=== PATIENT | female | born 1970 | race Caucasian/White ===

== ENCOUNTER 2016-10-19 16:54 | Emergency (ER) | payer OTHER ==
[~2016-10-19] VITALS: Ht 152.4 cm; Wt 70.5 kg
[~2016-10-19 16:54] MED LIST: ATEN25TA7 PO; ATEN50TA PO; BUPR150T9 PO; CITA40TA13 PO; OXYC-466 PO; PANT20T PO; PANT40SU PO; TIAG4TAB32 PO
[2016-10-19 17:09] VITALS: BP 151/87; PULSE 57; RESP 22; O2SAT 99
--- NOTE | 2016-10-19 17:59 | ED.REPORT ---
HPI-General Illness Date of Service October 19, 2016 ED Provider: Facundo Berg MD Patient is a 46 year old female with a hx of HTN and migraines who presents to the ED complaining of weakness and numbness to all extremities. She reports that her symptoms started as nausea and malaise 3 days ago and progressed. Associated symptoms include vomiting, blurred vision, dizziness, generalized pain, diarrhea, left sided facial droop (onset 1130 today), and headache onset 3 days ago. She denies cough, dysuria, fever, head trauma, or any other symptoms She has had similar symptoms previously and has been worked up for her episodes of extremity weakness and facial droop by Dr. Corbin. Patient reports that since being on BP meds, her episodes have been less frequent. She takes Protonics, Celexa, and Atenolol daily. Nursing Notes Stated Complaint: NAUSEA, HEADACHE Chief Complaint: Neuro Symptoms/ Deficits Nursing Notes Reviewed: Yes Allergies: Coded Allergies: acetaminophen (Verified Allergy, Mild, MAKES FEET ITCH, 10/19/16) hydrocodone (Verified Allergy, Mild, MAKES FEET ITCH, 10/19/16) Scheduled Atenolol (Atenolol) 50 Mg Tablet 50 MG PO BID Atenolol-Expunged Drug, Do Not Renew! (Atenolol-Expunged Drug, Do Not Renew!) 25 Mg Tablet 50 MG PO BID Bupropion HCl (Zyban) 150 Mg Tablet.er 150 MG PO BID Citalopram (Citalopram) 40 Mg Tablet 40 MG PO DAILY Pantoprazole Sodium (Protonix Granules) 40 Mg Fernando. 40 MG PO BID Pantoprazole-Expunged Drug, Do Not Renew! (Protonix-Expunged Drug, Do Not Renew! ) 20 Mg Tablet.dr 40 MG PO BID Tiagabine (Tiagabine) 4 Mg Tablet 4 MG PO BID Scheduled PRN oxyCODONE-Acetaminophen 10-325 mg (oxyCODONE-Acetaminophen 10-325 mg) 1 Each Tablet 1 TABLET PO TID PRN PRN For Pain General Time Seen by MD: 17:58 Chief Complaint Weakness Hx Obtained From: Patient, Other family... Arrived By: Walk-in Sudden in Onset?: Yes Onset Occurred: 3 days ago Symptom Duration: Since onset Similar Sx Previous: Yes Past Medical History Past Medical History Notes: PCP: Brenda Raymond h/o multiple ED visits for epigastric pain in 2012, and prior Neurologist [facility] work-up negative Past Medical History Depression Anxiety H/o Pancreatitis, idiopathic (Admit 12/2008) (Lipase 790, CT negative, U/S negative hepatobilliary pathology, Negative HIDA Scan 10/2009 Hypertension Chronic chest pain Pineal gland cyst Past Surgical History Upper endoscopy 10/02/09 Gastric polyps, 2cm hiatal hernia Sinus surgery Family History noncontributory Smoking History Former Smoker Social History Alcohol Use: Denies alcohol use Drug Use: Denies drug use Other Social History: Good social support, Local resident Ambulatory Status Independent Review of Systems +left sided facial droop -head trauma Full Review of Systems Constitutional: Reports: Malaise, Denies: Fever Eyes: Reports: Blurred bilateral Respiratory: Denies: Non-productive cough GI: Reports: Diarrhea, Nausea, Vomiting Female: Denies: Dysuria Neurologic: Reports: Dizziness, Headache, Numbness, Weakness Complete sys rev & neg: except as marked. Physical Exam Vital Signs Vital Signs Date Time Temp Pulse Resp B/P Pulse Ox O2 Delivery O2 Flow Rate FiO2 10/19/16 19:12 36.8 62 17 143/87 100 Room Air 10/19/16 17:09 57 22 151/87 99 Room Air Initial VS: Reviewed Head / Eyes: Atraumatic, Normocephalic Neck: Full range of motion Skin: Warm, Dry Psychiatric: Mood/affect normal, Behavior normal, Normal thought content General/Constitutional: Awake, Alert, Well developed Distress / Hydration: Positive: Distress moderate Respiratory / Chest: Breath sounds NL, Breath sounds = bilat mildly tachypneic Cardiovascular: Heart rate NL, Regular rhythm, Heart sounds NL Abdomen: Soft Neurologic: Oriented X3, Speech NL Mild left facial droop. Neuro exam otherwise nL Carpal pedal spasm Interpretation & Diagnostics Lab Results Interpretation Result Diagram: 10/19/16180610/19/161806 Test 10/19/16 18:07 White Blood Count 10.9th/mm3 (3.8-10.1) Red Blood Count 5.25mil/mm3 (3.90-5.20) Hemoglobin 14.0g/dL (12.0-15.6) Hematocrit 41.9% (35.0-46.0) Mean Corpuscular Volume 79.8fL (81-100) Mean Corpuscular Hemoglobin 26.7pg (27.0-35.0) Mean Corpuscular Hemoglobin Concent 33.4% (32.0-37.0) Red Cell Distribution Width 17.0% (12.3-15.4) Platelet Count 378bil/L (150-400) Neutrophils (%) (Auto) 72.7% (40-74) Lymphocytes (%) (Auto) 19.8% (14-46) Monocytes (%) (Auto) 7.0% (4-12) Eosinophils (%) (Auto) 0.1% (0-5) Basophils (%) (Auto) 0.3% (0-3) Erythrocyte Sedimentation Rate 18mm/hr (0-32) Sodium Level 138mEq/L (134-144) Potassium Level 3.7mEq/L (3.5-5.2) Chloride Level 96mEq/L (97-108) Carbon Dioxide Level 17mmol/L (18-29) Blood Urea Nitrogen 13mg/dL (6-24) Creatinine 0.60mg/dL (0.57-1.00) Estimat Glomerular Filtration Rate 154mL/min (>59) Glucose Level 85mg/dL (60-99) Calcium Level 10.6mg/dL (8.5-10.1) Total Bilirubin 0.8mg/dL (0.0-1.2) Aspartate Amino Transf (AST/SGOT) 32U/L (0-50) Alanine Aminotransferase (ALT/SGPT) 27U/L (0-32) Alkaline Phosphatase 167U/L (25-150) Total Protein 8.9g/dL (6.4-8.4) Albumin 5.0g/dL (3.4-5.0) Re-Eval/Medical Decision Med Decision/Clinical Course I believe that her symptoms were related to migraine and subsequent development of hyperventilation and carpopedal spasm and circumoral numbness. Time of Eval: 19:45 Re-Evaluation/Progress Note: Rechecked patient. She is still uncomfortable and reports her head feels tight. Time of Eval: 20:46 Re-Evaluation/Progress Note: Rechecked patient. She is feeling better. Full NIH stroke exam completed. NIH stroke scale of 1 due to mild L sided facial droop that has improved greatly since arrival. Counseled Regarding: Diagnosis, Lab results, Need for follow-up, When/why to return to ED Discharge & Departure Primary Impression: Headache Headache type: unspecified Headache chronicity pattern: unspecified pattern Intractability: not intractable Qualified Code: R51 - Headache Additional Impression: Acute respiratory alkalosis Disposition: Home Discharge Condition All VS Reviewed: Yes Condition: Improved Patient Instructions: Acute Headache (GEN) Additional Instructions: Thank you for entrusting us with you care. Drink clear liquids tonight and get plenty of rest. No dangerous cause for your symptoms, including stroke, is discovered or suspected at this time. Call your primary doctor tomorrow morning to schedule a follow up appointment within the next few days. Return to the emergency department if you experience any new or worsening symptoms. Referrals: Brenda Raymond MD (PCP) Scribe Attestation Portions of this note were transcribed by Pieter Alberto. I, Dr. Berg personally performed the history, physical exam and medical decision-making; I reviewed and confirmed the accuracy of the information in the transcribed note. Signed by: Pieter Alberto 10/19/16, 2105 copies to: Brenda Raymond MD, Kirk H MD October 19, 2016 17:59 PIETER ALBERTO October 19, 2016 18:06
[2016-10-19] MEDS ORDERED: 0.9% Sodium Chloride 1,000 ML IV ONE (18:07)
[2016-10-19] MEDS ORDERED: Dexamethasone 10 mg/mL Inj IVPUSH ONE (18:10)
[2016-10-19] MEDS ORDERED: MetoCLOpramide 5 mg/mL 2 mL Inj IVPUSH ONE (18:10)
[2016-10-19] MEDS ORDERED: Ondansetron 2 mg/mL 2 mL Inj IVPUSH ONE (18:10)
[2016-10-19 19:12] VITALS: BP_SYST 143; BP_SYST 156; BP_DIAS 108; BP_DIAS 87; PULSE 62; RESP 17; O2SAT 100
[2016-10-19 19:26] LABS: BASOPHILS % (AUTO) 0.3 % (0-3); EOSINOPHILS % (AUTO) 0.1 % (0-5); Mean Corpuscular Hemoglobin 26.7 pg (27.0-35.0); Mean Corpuscular Volume 79.8 fL (81-100); NEUTROPHILS % (AUTO) 72.7 % (40-74); Platelet Count 378 bil/L (150-400)
[2016-10-19] MEDS ORDERED: Haloperidol 5 mg/mL Inj IVPUSH ONE (19:55)
[2016-10-19 20:00] LABS: ERYTHROCYTE SEDIMENTATION RATE 18 mm/hr (0-32)
[2016-10-19 21:37] VITALS: BP 116/74; PULSE 62; RESP 17; O2SAT 92
== END 2016-10-19 21:38 | disposition home or self-care (01) ==
LOC: SED 16:54
DX: R51 Headache (principal); E87.3 Alkalosis; I10 Essential (primary) hypertension; Z87.891 Personal history of nicotine dependence; Z88.5 Allergy status to narcotic agent; Z88.8 Allergy status to other drugs, medicaments and biological substances
CPT/HCPCS: 80053; 85025; 85651; 96361; 96374; 96375; 99284; J1100; J1200; J1630; J1885; J2060; J2765; J7030

== ENCOUNTER 2017-02-28 00:16 | Observation (INO) | payer OTHER ==
[~2017-02-28] VITALS: Ht 152.4 cm; Wt 72.1 kg
[~2017-02-28 00:16] MED LIST changes: +TIAG4TAB PO; -TIAG4TAB32 PO
[2017-02-28 00:18] VITALS: BP 137/93; PULSE 97; RESP 12; O2SAT 100
--- NOTE | 2017-02-28 00:34 | ED.REPORT ---
HPI-Rash / Abscess Date of Service Feb 28, 2017 ED Provider: Theo Romano MD The pt is a 46 y/o female w/ a hx of HTN presenting to the ED w/ a generalized, itchy rash onset two weeks ago. She saw her PCP and was treated w/ Prednisone, which gave her minimal relief, and a steroid injection w/o relief. She also describes her vaginal area becoming swollen and itchy as of today. She reports increased stress in her life. She also has taken tons of Benadryl w/o relief. Denies any new medications, lotions, or soaps. Nursing Notes Stated Complaint: HIVES, VAGINAL SWELLING Chief Complaint: Generalized rash Nursing Notes Reviewed: Yes Allergies: Coded Allergies: acetaminophen (Verified Allergy, Mild, MAKES FEET ITCH, 10/19/16) hydrocodone (Verified Allergy, Mild, MAKES FEET ITCH, 10/19/16) Scheduled Atenolol (Atenolol) 50 Mg Tablet 50 MG PO BID Atenolol-Expunged Drug, Do Not Renew! (Atenolol-Expunged Drug, Do Not Renew!) 25 Mg Tablet 50 MG PO BID Bupropion HCl (Zyban) 150 Mg Tablet.er 150 MG PO BID Citalopram (Citalopram) 40 Mg Tablet 40 MG PO DAILY Pantoprazole Sodium (Protonix Granules) 40 Mg Granpkt.dr 40 MG PO BID Pantoprazole-Expunged Drug, Do Not Renew! (Protonix-Expunged Drug, Do Not Renew! ) 20 Mg Tablet.dr 40 MG PO BID Tiagabine (Tiagabine) 4 Mg Tablet 4 MG PO BID Scheduled PRN oxyCODONE-Acetaminophen 10-325 mg (oxyCODONE-Acetaminophen 10-325 mg) 1 Each Tablet 1 TABLET PO TID PRN PRN For Pain General Time Seen by MD: 00:34 Chief Complaint Rash Hx Obtained From: Patient Arrived By: Walk-in Onset Occurred: More than a week ago... (2 weeks) Symptom Duration: Since onset Recent Healthcare: No recent hospitalization, Recent doctor visit Similar Sx Previous: No Past Medical History Past Medical History Notes: PCP: Brenda Raymond h/o multiple ED visits for epigastric pain in 2012, and prior Neurologist [facility] work-up negative Past Medical History Depression Anxiety H/o Pancreatitis, idiopathic (Admit 12/2008) (Lipase 790, CT negative, U/S negative hepatobilliary pathology, Negative HIDA Scan 10/2009 Hypertension Chronic chest pain Pineal gland cyst Past Surgical History Upper endoscopy 10/02/09 Gastric polyps, 2cm hiatal hernia Sinus surgery Family History noncontributory Smoking History Former Smoker Social History Alcohol Use: Denies alcohol use Drug Use: Denies drug use Other Social History: Good social support, Local resident Ambulatory Status Independent Review of Systems + Swollen and itchy vaginal area; Constitutional: Reports: Chills Eyes: Denies: Blurred right Cardiovascular: Denies: Chest pain GI: Denies: Abdominal pain Musculoskeletal: Denies: Back pain Skin: Reports Rash (generalized ) Complete sys rev & neg: except as marked. Psychiatric: Reports: Stress Physical Exam Initial Vital Signs Vital Signs (First) Date Time Temp Pulse Resp B/P Pulse Ox O2 Delivery O2 Flow Rate FiO2 02/28/17 00:18 37.0 97 12 137/93 100 Room Air Initial VS: Reviewed Head / Eyes: Atraumatic, Normocephalic, PERRL ENT: Mucous membranes moist, Conjunctiva normal, No scleral icterus Neck: Supple, Non-tender, Full range of motion Respiratory: Breath sounds normal, Clear to auscultation, No respiratory distress Cardiovascular: Regular rate & rhythm, Heart sounds normal, Intact distal pulses Abdomen / GI: Soft, Non-tender, No guarding, No rebound, No distention Extremities: Vascular intact, Neuro intact, No swelling, No tenderness Neurologic: Alert, Oriented, Nonfocal Psychiatric: Mood/affect normal, Behavior normal, Normal thought content General/Constitutional: Awake, Alert Skin: Warm, Dry Diffuse urticaria; Female Genitourinary: Plate Setter present Bright red erythema of external genitalia over vuvula and to pubic symphysis, that is tender and has induration consistent w/ cellulitis; Interpretation & Diagnostics Lab Results Interpretation Result Diagram: 02/28/17 0125 02/28/17 0125 Test 02/28/17 01:25 White Blood Count 18.8th/mm3 (3.8-10.1) Red Blood Count 4.48mil/mm3 (3.90-5.20) Hemoglobin 12.1g/dL (12.0-15.6) Hematocrit 36.4% (35.0-46.0) Mean Corpuscular Volume 81.3fL (81-100) Mean Corpuscular Hemoglobin 27.0pg (27.0-35.0) Mean Corpuscular Hemoglobin Concent 33.2% (32.0-37.0) Red Cell Distribution Width 16.4% (12.3-15.4) Platelet Count 398bil/L (150-400) Neutrophils (%) (Auto) 71.4% (40-74) Lymphocytes (%) (Auto) 17.1% (14-46) Monocytes (%) (Auto) 6.6% (4-12) Eosinophils (%) (Auto) 4.3% (0-5) Basophils (%) (Auto) 0.3% (0-3) Sodium Level 138mEq/L (134-144) Potassium Level 4.1mEq/L (3.5-5.2) Chloride Level 101mEq/L (97-108) Carbon Dioxide Level 22mmol/L (18-29) Blood Urea Nitrogen 11mg/dL (6-24) Creatinine 0.81mg/dL (0.57-1.00) Estimat Glomerular Filtration Rate 109mL/min (>59) Glucose Level 123mg/dL (60-99) Calcium Level 8.9mg/dL (8.5-10.1) Total Bilirubin 0.2mg/dL (0.0-1.2) Aspartate Amino Transf (AST/SGOT) 15U/L (0-50) Alanine Aminotransferase (ALT/SGPT) 13U/L (0-32) Alkaline Phosphatase 76U/L (25-150) Total Protein 7.2g/dL (6.4-8.4) Albumin 4.0g/dL (3.4-5.0) Hold Greenberg Top Tube Received (Received) Pulse Oximetry Interpretation Pulse Oximetry Interpretation: 100% Re-Eval/Medical Decision Med Decision/Clinical Course Impressive cellulitis of the fall foot and perigenital region. There is induration and local lymphadenopathy. No palpable abscesses. The area is exquisitely tender, erythematous and warm to the touch. How this ties in with the diffuse urticaria is beyond me. She does have an 18,000 white count she has been off steroids for 10 days. We will treat her with brayden spectrum antibiotics and hospitalization for close monitoring. Source of Hx: Old records Re-Evaluation/Progress #1: Time of Eval: 01:36 Re-Evaluation/Progress Note: Performed pelvic exam. Re-Evaluation/Progress #2: Time of Eval: 01:59 Re-Evaluation/Progress Note: Pt rechecked. Informed pt of need for admission. Pt understands and agrees with plan for admission. All questions addressed. Consultation : Referral / Consult Name: Tk Tinoco MD Consulted With: Hospitalist Call Returned at: 02:15 Level Vial Inspector: Will see patient, Agrees with eval, Agrees with plan, Accepts admit Counseled Regarding: Diagnosis, Lab results, Need for admission Discharge & Departure Impression: Primary Impression: Vulval cellulitis Additional Impressions: Cellulitis of labia Leukocytosis Leukocytosis type: unspecified Qualified Code: D72.829 - Elevated white blood cell count, unspecified Rash Disposition: ADMITTED TO HOSPITAL Discharge Condition All VS Reviewed: Yes Condition: Stable Referrals: Brenda Raymond MD (PCP) Scribe Attestation Portions of this note were transcribed by Abiodun Gandhi. I, Dr. Romano personally performed the history, physical exam and medical decision-making; I reviewed and confirmed the accuracy of the information in the transcribed note. copies to: Brenda Raymond MD, Todd P DO Feb 28, 2017 00:34 Abiodun Gandhi Feb 28, 2017 00:39
[2017-02-28] MEDS ORDERED: Dexamethasone 10 mg/mL Inj IM ONE (01:10)
[2017-02-28 01:27] LABS: BASOPHILS % (AUTO) 0.3 % (0-3); EOSINOPHILS % (AUTO) 4.3 % (0-5); MONOCYTES % (AUTO) 6.6 % (4-12); Mean Corpuscular Volume 81.3 fL (81-100); NEUTROPHILS % (AUTO) 71.4 % (40-74); Platelet Count 398 bil/L (150-400)
[2017-02-28] MEDS ORDERED: Piperacillin-Tazo 3.375 Gm Inj 3.375 GM in Dextrose 5% Minibag Plus 50 ML IV ONE (01:40)
[2017-02-28] MEDS ORDERED: Vancomycin Inj 1,500 MG in 0.9% Sodium Chloride 500 ML IV ONE (01:44)
[2017-02-28] MEDS ORDERED: Alum-Mag Hydrox-Simeth 30 mL Suspension PO PRN (02:40)
[2017-02-28] MEDS ORDERED: Ondansetron 2 mg/mL 2 mL Inj IVPUSH PRN ×2 (02:40)
[2017-02-28 04:20] VITALS: BP 132/80; PULSE 85; RESP 19; O2SAT 99
[2017-02-28] MEDS: 0.9% Sodium Chloride 1,000 ML IV SCH ×3 (04:21→22:36)
--- NOTE | 2017-02-28 04:37 | NUR ---
ADMIT; 46 yr old female to room 1005 via [facility] with c/o generalized itchy rash, which started about 2 weeks ago. See admit screens.
[2017-02-28] MEDS ORDERED: birth control (04:39)
[2017-02-28] MEDS ORDERED: flonase (04:43)
[2017-02-28] MEDS: HYDROmorphone 0.5 mg/0.5 mL iSecure Syringe IVPUSH PRN ×2 (05:26→10:13)
--- NOTE | 2017-02-28 06:21 | NUR ---
PAIN/ITCH; dilaudid given for c/o headache with relief. Ice pack to meenu area for swelling/itching which is helping pt states.
[2017-02-28 07:30] VITALS: BP 146/82; PULSE 98; RESP 19; O2SAT 99
[2017-02-28] MEDS ORDERED: FLUT9.9S NS (07:51)
[2017-02-28] MEDS ORDERED: PANT40TA2 PO (07:51)
--- NOTE | 2017-02-28 10:03 | NUR ---
Pain/Itching/Tearful Pt c/o of pain in labia area; 12/14 start of shift, PO Tylenol given for pain pt states "not effective, pain is worse." Per MD IV pain medication will not help, explained to the pt to which pt burst into tears "I have to wait 4 more hours for pain medication?" Will notify MD of pt concern; care ongoing.
[2017-02-28] MEDS: Piperacillin-Tazo 3.375 Gm Inj 3.375 GM in Dextrose 5% Minibag Plus 50 ML IV SCH ×2 (10:11→16:24)
--- NOTE | 2017-02-28 11:54 | NUR ---
Social Work: Screening/Multidisciplinary Rounds D: EMR reviewed. Pt is a 46 y/o [place] admitted [place] - readmit score not assigned - for vulvar cellulitis, leukocytosis, and rash per H&P. Pt's insurance is [employer]. PCP is Brenda Raymond MD. Pt's NOK is spouse Jeferson Izaguirre [phone]. SW screened pt's EMR - pt does not screen in for full assessment at this time. Pt discussed in multidisciplinary rounds and is not medically stable for discharge at this time, anticipate 2-3 more days. Per MD, pt does not have any discharge needs at this time. No SW needs identified, no MD orders received. SW will continue to follow. SW met with pt and spouse and bedside to follow-up with pt regarding DPOA/advanced directive ppw. SW provided DPOA/advanced directive ppw and encouraged pt to return a copy to the hospital once complete. Pt agreeable. Pt's spouse was in room with pt and confirmed he will provide transport home when pt is medically stable. Pt and spouse do not have any concerns for discharge at this time. SW provided phone number on white board and encouraged pt to call if any discharge planning questions arise. Pt and spouse agreeable. A: Pt who is independent at baseline. P: Pt anticipated to discharge home with spouse via POV. No anticipated discharge needs at this time, no MD orders received. SW will continue to follow for needs. AGAPITO Palacios
--- NOTE | 2017-02-28 12:30 | PCM.HPMED ---
Subjective Date of Service Feb 28, 2017 Primary Provider: Admitting Physician: Tk Tinoco MD Primary Care Physician: Brenda Raymond MD Attending Physician: Tk Tinoco MD Chief Complaint: Edema and erythema and pain of the urogenital area History of Present Illness: Patient with the past medical history of chronic pain treated with Canabis oil, depression and treated with citalopram, hypertension treated with atenolol, rash treated with Benadryl and steroids presented to the emergency department with a swollen genital area with mild erythema and pain. The patient has been having intermittent rash for several weeks. Her primary care doctor was treating it with steroids and Benadryl. 3 days ago patient noticed erythema and edema in the genital area which slowly has been getting worse. The patient decided to come to the emergency department. In the emergency department patient was diagnosed with acute cellulitis, ENT physician asked to admit her to continue treatment with IV antibiotics. Patient states she is sexually active with her , they do not use condoms or toys that patient might be allergic to. We will check her vaginal swabs for gonorrhea Chlamydia and Trichomonas. Review of Systems: REVIEW OF SYSTEMS: GENERAL: no malaise, no fevers., SEE HPI HEENT: Negative for frequent or significant headaches All other reviewed and negative other than HPI. Allergies Coded Allergies: acetaminophen (Verified Allergy, Mild, MAKES FEET ITCH, 02/28/17) hydrocodone (Verified Allergy, Mild, MAKES FEET ITCH, 02/28/17) Home Medications PRN Benadryl and steroids. Canabis oil PMH Rash Family History Hypertension Social History Hx Alcohol Use: No Hx Substance Use: No Hx Tobacco Use: No Smoking Status: Former Smoker Exam Vital Signs Vital Sign - Last Date Time Temp Pulse Resp B/P Pulse Ox O2 Delivery O2 Flow Rate FiO2 02/28/17 07:30 36.7 98 19 146/82 99 Room Air Intake and Output 02/27/17 02/27/17 02/28/17 Cumulative From/Thru 15:00 23:00 07:00 02/28/17 00:18 - 02/28/17 06:29 Intake Total 500 ml 500 ml Output Total 400 ml 400 ml Balance 100 ml 100 ml Intake Oral 0 ml 0 ml IV Total 500 ml 500 ml Output Urine Total 400 ml 400 ml Exam GENERAL: Alert, mild distress, cooperative HEAD: atraumatic, normocephalic, no bruises. EYES: CARL, EOMI, anicteric, able to fully open and close eyelids SKIN: Skin color normal, turgor normal. Diffuse macular rash over the body. EAR, NOSE, MOUTH, THROAT: Lips, oral mucosa, tongue gums, oropharynx are moist , pink, no lesions. Ears normal appearance, no lesions. NECK: no jugulovenous distention; supple ROM normal. RESPIRATORY: Lungs clear to auscultation. Good diaphragmatic excursion. CARDIAC: normal S1 and S2; no rubs, murmurs, or gallops; regular rate and rhythm ABDOMEN: Abdomen soft, non-tender. BS normal. No masses or organomegaly. MUSCULOSKELETAL: ROM full, muscles are not tender EXTREMITIES: no pitting edema in LE, no new deformities or skin discoloration. NEURO: Alert, oriented X 3, Sensation grossly intact., Cranial nerves II-XII intact, Grossly normal motor function. Genitals - I examined the patient with the nurse. Labia majora and minora are mildly swollen, mildly erythematous, painful to touch, there is no vaginal or other discharge present. PULSES: 2+ radial, 2+ carotid Lab and Diagnostics Result Diagram: 02/28/1712402/28/17124 Assessment & Plan 46-year-old female but there was medical history of chronic pain(on canabis oil daily), hx of rash treated with Benadryl and steroids presented to the emergency department with erythema, edema and pain/itching of the urogenital area. Sepsis(leukocytosis, tachycardia), present on admission. Cellulitis of soft tissue of urogenital area - Stable, not under control - Continue with antibiotics - We will send swabs for gonorrhea Chlamydia and Trichomonas - Pain controlled with IV and PO opioids and Tylenol - IV fluids - f/u Blood cultures Macular rash all over the body - Most likely allergic reaction to either medications or something else patient is in contact with. - Hold all home medications - Patient received dexamethasone in the emergency department - Monitor HTN - stable - hold home meds Depression - stable - hold home meds Chronic pain - Patient was on O Gu is 54, now she is taking capsules with Cannabis oil daily - c/w pain meds for now Chronic skin rash - Symptomatic treatment for now - patient will need to follow up with the sales and operations trainee in clinic DVT PROPHYLAXIS: lovenox Code status: full code Disposition: discharge after patient improves. Plan of care discussed with treatment team; Labs, radiology tests reviewed. Plan of care, medication side effects, home medication, diagnostic procedures and available alternatives were discussed and reviewed with patient. All questions answered. Patient verbalized understanding, approved and agreed to plan of care. VTE Mechanical Devices: Intermittant Pneumatic CD Earnest Fiore MD Feb 28, 2017 12:30
[2017-02-28 14:08] VITALS: BP 135/74; PULSE 93; RESP 18; O2SAT 98
[2017-02-28 15:05] LABS: APPEARANCE,URINE CLEAR (CLEAR,HAZY); COLOR,URINE STRAW (YELLOW); OCCULT BLOOD,URINE NEGATIVE (NEGATIVE); UROBILINOGEN,URINE NORMAL (NORMAL)
[2017-02-28 17:16] VITALS: BP 141/76; PULSE 73; RESP 18; O2SAT 97
--- NOTE | 2017-02-28 18:00 | NUR ---
Pain/Itching/Rash Pt c/o 12/14 pain today most of day; PO Tylenol given for pain and IV .5mg Dilaudid given earlier in shift to help relieve pain, ice packs applied to meenu area and calmoseptine given to apply as well. IV Dilaudid shortage, no longer available from pharmacy. MD called and requested PO Dilaudid instead. 2mg PO Dilaudid given this afternoon with PO Tylenol this afternoon to which pt states swelling and vaginal area seems better, pain at 5-6/10 from 12/14 and feels rash on arms is starting to look less red. Awaiting test results for STD's and blood cultures; IV Zosyn infusing. Care ongoing.
[2017-02-28 19:48] VITALS: BP 153/88; PULSE 72; RESP 16; O2SAT 95
[2017-03-01 00:41] VITALS: BP 146/78; PULSE 74; RESP 18; O2SAT 93
[2017-03-01] MEDS: Piperacillin-Tazo 3.375 Gm Inj 3.375 GM in Dextrose 5% Minibag Plus 50 ML IV SCH ×3 (01:10→16:22)
[2017-03-01] MEDS: diphenhydrAMINE 25 mg Capsule PO PRN ×4 (02:54→22:58)
[2017-03-01] MEDS: oxyCODONE-Acetamin 5-325 mg Tablet PO PRN ×6 (04:00→21:26)
[2017-03-01 05:09] VITALS: BP 122/75; PULSE 86; RESP 16; O2SAT 98
--- NOTE | 2017-03-01 05:18 | NUR ---
Pain/itching Pt reporting 6-7/10 pain to vaginal area. Pt had been receiving 2mg PO Dilaudid and thought this might be contributing to increased itching. Pt denies vaginal discharge or painful urination. MD notified of increased itching and also ordered Dexamethasone 2mg PO one time dose and Benadryl 25 mg PO q6 hrs prn. MD also switched Dilaudid to 1 tab of Percocet for this morning. Pt reporting being able to sleep a small amount after this combination of meds. Pt has ice packs placed to vagina. Pt reporting that generalized rash does seem slightly better.
[2017-03-01 09:10] VITALS: BP 149/82; PULSE 75; RESP 17; O2SAT 100
--- NOTE | 2017-03-01 12:37 | PCM.PNMED ---
Subjective Date of Service Mar 01, 2017 Subjective Patient with the past medical history of chronic pain treated with Canabis oil, depression and treated with citalopram, hypertension treated with atenolol, rash treated with Benadryl and steroids presented to the emergency department with a swollen genital area with mild erythema and pain. The patient has been having intermittent rash for several weeks. Her primary care doctor was treating it with steroids and Benadryl. 3 days prior to admission patient noticed erythema and edema in the genital area which slowly had been getting worse. Patient was diagnosed with acute cellulitis, ED physician asked to admit her to continue treatment with IV antibiotics. I held all her home meds. Today patient feels better. Rash is improving. Exam Vital Signs Vital Sign - Last Date Time Temp Pulse Resp B/P Pulse Ox O2 Delivery O2 Flow Rate FiO2 03/01/17 09:10 36.7 75 17 149/82 100 Room Air Intake and Output 02/28/17 02/28/17 03/01/17 Cumulative From/Thru 15:00 23:00 07:00 02/28/17 00:18 - 03/01/17 05:09 Intake Total 3583 ml 1558 ml 5641 ml Output Total 1550 ml 1200 ml 3150 ml Balance 2033 ml 358 ml 2491 ml Intake Oral 1650 ml 800 ml 2450 ml IV Total 1933 ml 758 ml 3191 ml Output Urine Total 1550 ml 1200 ml 3150 ml # Bowel Movements 0 0 0 Exam GENERAL: Alert, not in distress HEAD: atraumatic, normocephalic, no bruises. EYES: EOMI, anicteric, able to fully open and close eyelids SKIN: Skin color normal, turgor normal. Diffuse macular rash over the body is improving EAR, NOSE, MOUTH, THROAT: Lips, oral mucosa, tongue are moist, pink, no lesions. Ears normal appearance, no lesions. NECK: supple ROM normal. MUSCULOSKELETAL: ROM full, muscles are not tender EXTREMITIES: no pitting edema in LE, no new deformities or skin discoloration. NEURO: Alert, oriented X 3, Cranial nerves II-XII intact, Grossly normal motor function. PULSES: 2+ radial, 2+ carotid REVIEW OF SYSTEMS: GENERAL: no malaise, no fevers., SEE HPI HEENT: Negative for frequent or significant headaches All other reviewed and negative other than HPI. IVs and Medications Medications Reviewed: Medications were reviewed in detail Lab and Diagnostics Result Diagram: 02/28/1712402/28/17124 Assessment & Plan 46-year-old female but there was medical history of chronic pain(on canabis oil daily), hx of rash treated with Benadryl and steroids presented to the emergency department with erythema, edema and pain/itching of the urogenital area. Sepsis(leukocytosis, tachycardia), present on admission. Cellulitis of soft tissue of urogenital area - Stable, improving Plan - Continue with Zosyn IV for now - f/u Urine for gonorrhea Chlamydia and Trichomonas - Pain controlled with IV and PO opioids and Tylenol - IV fluids - f/u Blood cultures Macular rash all over the body - improving - Most likely allergic reaction to either medications or something else patient is in contact with. - Hold all home medications - Patient received dexamethasone in the emergency department - Monitor HTN - mildly elevated - start Coreg, monitor , adjust BP meds as needed. Hold home Atenolol . Depression - stable - continue to hold home meds Chronic pain - Patient was on opioids befor, now she takes capsules with Cannabis oil daily. - c/w pain meds for now Chronic skin rash - Symptomatic treatment for now - patient will need to follow up with the founder chairman and chief creative officer in clinic - hold all home meds DVT PROPHYLAXIS: lovenox Code status: full code Disposition: discharge after patient improves. Plan of care discussed with treatment team; Labs, radiology tests reviewed. Plan of care, medication side effects, home medication, diagnostic procedures and available alternatives were discussed and reviewed with patient. All questions answered. Patient verbalized understanding, approved and agreed to plan of care. [employer]: Intermittant Pneumatic CD Earnest Fiore MD Mar 01, 2017 12:37
[2017-03-01 12:50] LABS: Mean Corpuscular Hemoglobin 26.3 pg (27.0-35.0); Mean Corpuscular Volume 82.4 fL (81-100)
[2017-03-01 13:28] VITALS: BP 119/81; PULSE 66; RESP 18; O2SAT 100
[2017-03-01 17:55] VITALS: BP 137/88; PULSE 77; RESP 18; O2SAT 98
--- NOTE | 2017-03-01 19:30 | NUR ---
Pain/Cellulitis Pt continues to have pain, swelling to labia, redness/rash and itchiness generalized. Taking 1x Percocet q4h and 25mg PO Benadryl q6h as they are available. Icing genitals for additional relief. Pt up to take shower d/t increased itchiness. IV abx continue to infuse. At change of shift, pt stating that she feels like it is starting to get worse. Continue on regimen for pain/itch. Pt A&Ox3, pleasant and cooperative with care. Care continues.
[2017-03-01 19:31] VITALS: BP 169/90; PULSE 83; RESP 17; O2SAT 99
[2017-03-02] MEDS: oxyCODONE-Acetamin 5-325 mg Tablet PO PRN ×4 (01:32→14:35)
[2017-03-02] MEDS: Piperacillin-Tazo 3.375 Gm Inj 3.375 GM in Dextrose 5% Minibag Plus 50 ML IV SCH ×2 (01:33→09:25)
--- NOTE | 2017-03-02 04:34 | NUR ---
Pain/Sleep Patient had order for Percocet 5/325 one tab [id number] PRN. States she hasn't noticed a difference in her pain with the administration of one tab during her time here. Dr. Eisenberg paged and Percocet order increased to 1-2 tabs [id number] PRN. Patient also c/o not being able to sleep during her time here. Order for Melatonin 5mg PO also ordered. Upon rounding, patient states she's finally slept a bit and her pain is more tolerable.
[2017-03-02 04:45] VITALS: BP 125/79; PULSE 69; RESP 17; O2SAT 99
[2017-03-02] MEDS: diphenhydrAMINE 25 mg Capsule PO PRN (05:31)
[2017-03-02 08:39] LABS: Mean Corpuscular Hemoglobin 26.3 pg (27.0-35.0); Mean Corpuscular Volume 83.3 fL (81-100)
[2017-03-02 09:12] VITALS: BP 117/75; PULSE 59; RESP 18; O2SAT 98
[2017-03-02 09:30] VITALS: PULSE 60
--- NOTE | 2017-03-02 12:58 | PCM.PNMED ---
Subjective Date of Service Mar 02, 2017 Subjective Patient is in the bed, feels better, rash is slowly improving, edema and erythema of the genital area is also improving. I will change her antibiotics to oral Augmentin and monitor for 1 more day in the hospital. Exam Vital Signs Vital Sign - Last Date Time Temp Pulse Resp B/P Pulse Ox O2 Delivery O2 Flow Rate FiO2 03/02/17 09:30 60 03/02/17 09:12 36.6 18 117/75 98 Room Air Intake and Output 03/01/17 03/01/17 03/02/17 Cumulative From/Thru 15:00 23:00 07:00 02/28/17 00:18 - 03/02/17 05:35 Intake Total 1107 ml 1200 ml 7948 ml Output Total 2350 ml 1600 ml 7100 ml Balance -1243 ml -400 ml 848 ml Intake Oral 797 ml 1200 ml 4447 ml IV Total 310 ml 3501 ml Output Urine Total 2350 ml 1600 ml 7100 ml # Bowel Movements 0 0 0 Exam GENERAL: Alert, mild distress, cooperative HEAD: atraumatic, normocephalic, no bruises. EYES: CARL, EOMI, anicteric, able to fully open and close eyelids SKIN: Skin color normal, turgor normal. Diffuse macular rash over the body improving EAR, NOSE, MOUTH, THROAT: Lips, oral mucosa, tongue are moist, pink, no lesions. Ears normal appearance, no lesions. NECK: no jugulovenous distention; supple ROM normal. MUSCULOSKELETAL: ROM full, muscles are not tender EXTREMITIES: no pitting edema in LE, no new deformities or skin discoloration. NEURO: Alert, oriented X 3, Cranial nerves II-XII intact, Grossly normal motor function. Genitals - I examined the patient with the nurse. Labia majora and minora are swollen, mildly erythematous, there is no vaginal or other discharge present, swelling and erythema improving . PULSES: 2+ radial, 2+ carotid REVIEW OF SYSTEMS: GENERAL: no malaise, no fevers., SEE HPI HEENT: Negative for frequent or significant headaches All other reviewed and negative other than HPI. IVs and Medications Medications Reviewed: Medications were reviewed in detail Lab and Diagnostics Result Diagram: 03/02/17 0833 02/28/17 0125 Assessment & Plan 46-year-old female with PMH of chronic pain(on canabis oil daily), hx of rash treated with Benadryl and steroids presented to the emergency department with erythema, edema and pain/itching of the urogenital area. Sepsis(leukocytosis, tachycardia), present on admission. Cellulitis of soft tissue of urogenital area - Stable, improving Plan - stop Zosyn IV , start Augmentin - Pain controlled with IV and PO opioids and Tylenol - IV fluids - f/u Blood cultures Macular rash all over the body - improving - Most likely allergic reaction to either medications or something else patient is in contact with. - continue to hold all home medications - Patient received dexamethasone in the emergency department - Monitor HTN - stable - c/w Coreg, monitor , adjust BP meds as needed. Hold home Atenolol . Depression - stable - continue to hold home meds, patient states she can be off Citalopram for more than a week without any symptoms. Chronic pain - Patient was on opioids befor, now she takes capsules with Cannabis oil daily. - c/w pain meds for now DVT PROPHYLAXIS: lovenox Code status: full code Disposition: discharge after patient improves. Plan of care discussed with treatment team; Labs, radiology tests reviewed. Plan of care, medication side effects, home medication, diagnostic procedures and available alternatives were discussed and reviewed with patient. All questions answered. Patient verbalized understanding, approved and agreed to plan of care. [employer]: Intermittant Pneumatic CD Earnest Fiore MD Mar 02, 2017 12:58
--- NOTE | 2017-03-02 13:51 | NUR ---
Social Work- Readiness for Discharge/Multidisciplinary Rounds Data: EMR reviewed. Pt is on day 2 of hospitalization. Pt is not medically stable for discharge though her rash is improving. Pt will have to be slowly restarted on home medications prior to d/c. No SW needs identified in rounds. Anticipate pt to d/c home with spouse to transport via POV. SW continues to follow. Assessment: Pt who is independent with ADLs and self-care Plan: Pt likely to d/c home with spouse to transport via POV. No SW orders received at this time. SW will continue to follow. AGAPITO Ochoa
[2017-03-02] MEDS: Amoxicillin-Clav 875-125 mg Tablet PO SCH ×2 (14:32→23:46)
[2017-03-02 17:47] VITALS: BP 105/70; PULSE 61
--- NOTE | 2017-03-02 18:18 | NUR ---
Nausea Pt had episode of nausea with emesis x1. Pt stated that she felt better after episode. Pt currently eating saltines and drinking sprite. Will continue to monitor. Care continues.
[2017-03-02 19:45] VITALS: BP 172/119; PULSE 59; RESP 17; RESP 59; O2SAT 100
[2017-03-02] MEDS ORDERED: Ondansetron 2 mg/mL 2 mL Inj IVPUSH PRN (20:10)
[2017-03-02] MEDS ORDERED: Ondansetron 2 mg/mL 2 mL Inj IVPUSH ONE (20:10)
[2017-03-02 22:40] VITALS: BP 138/92
--- NOTE | 2017-03-03 01:38 | NUR ---
Nausea/chills/diaphoretic Pt having nausea at beginning of shift. MD paged and order for Zofran 4mg IVP obtained. Pt did end up vomiting 300 cc. Pt reporting this to be helpful however pt started to have chills and become diaphoretic. Pt also very anxious at this time and not wanting to take scheduled Augmentin tablet until feeling better. Pt thinking chills/sweating/nausea could be due to not taking Celexa for 4 days now. MD made aware of chills and sweating, and possible relation to stopping celexa. However since pt has generalized rash and the day team had decided to stop meds, MD did not want to change this plan. Will pass on this information to dayshift RN. did order Ativan for anxiety. This was very helpful. Pt was able to take a shower and was given more Zofran and was able to eat food and take the Augmentin. Pt did report starting her Menstruation and was given pads and underwear. Pt now sleeping and appears more comfortable.
[2017-03-03 04:50] VITALS: BP 132/90; PULSE 83; RESP 16; O2SAT 94
[2017-03-03 08:47] LABS: Mean Corpuscular Hemoglobin 26.4 pg (27.0-35.0); Mean Corpuscular Volume 81.5 fL (81-100)
[2017-03-03] MEDS: Amoxicillin-Clav 875-125 mg Tablet PO SCH ×2 (10:57→20:41)
[2017-03-03 10:59] VITALS: BP 128/89; PULSE 90; RESP 16; O2SAT 96
--- NOTE | 2017-03-03 12:25 | NUR ---
Mentation/Chills/Diaphoretic Pt visibly upset and crying, stating "I don't feel right." Pt thought it was related to not being able to take her Celexa. Pt shaking and diaphoretic. MD notified. Re-started Celexa. One time dose of Ativan given. Morning medications given after pt was calmed and able to eat some food. Will continue to monitor.
[2017-03-03] MEDS: diphenhydrAMINE 25 mg Capsule PO PRN ×3 (15:35→22:34)
--- NOTE | 2017-03-03 15:53 | PCM.PNMED ---
Subjective Date of Service Mar 03, 2017 Subjective Patient is in the bed, complaining of anxiety, swelling in her private parts increased today a bit. I asked RESOURCE EFFICIENCY MANAGER to evaluated the patient today, they will see her today. I resumed her Citalopram. Skin rash is stable. Exam Vital Signs Vital Sign - Last Date Time Temp Pulse Resp B/P Pulse Ox O2 Delivery O2 Flow Rate FiO2 03/03/17 10:59 36.9 90 16 128/89 96 Room Air Intake and Output 03/02/17 03/02/17 03/03/17 Cumulative From/Thru 15:00 23:00 07:00 02/28/17 00:18 - 03/03/17 06:11 Intake Total 850 ml 1220 ml 14563 ml Output Total 1500 ml 1450 ml 92353 ml Balance -650 ml -230 ml -32 ml Intake Oral 786 ml 1220 ml 6453 ml IV Total 64 ml 3565 ml Output Urine Total 1500 ml 1150 ml 9750 ml Emesis 300 ml 300 ml # Bowel Movements 0 0 0 Exam GENERAL: Alert, mild distress, cooperative HEAD: atraumatic, normocephalic EYES: EOMI, anicteric, able to fully open and close eyelids SKIN: Skin color normal, turgor normal. Diffuse macular rash over the body improving EAR, NOSE, MOUTH, THROAT: Lips, oral mucosa, tongue are moist, pink, no lesions. NECK: no jugulovenous distention; supple ROM normal. MUSCULOSKELETAL: ROM full, muscles are not tender EXTREMITIES: no pitting edema in LE, no new deformities or skin discoloration. NEURO: Alert, oriented X 3, Cranial nerves II-XII intact, Grossly normal motor function. Genitals - I examined the patient with the nurse. Labia majora and minora are swollen, mildly erythematous, patient started her period today. PULSES: 2+ radial, 2+ carotid REVIEW OF SYSTEMS: GENERAL: no malaise, no fevers., SEE HPI HEENT: Negative for frequent or significant headaches All other reviewed and negative other than HPI. IVs and Medications Medications Reviewed: Medications were reviewed in detail Lab and Diagnostics Result Diagram: 03/03/17 0827 02/28/17 0125 Assessment & Plan 46-year-old female with PMH of chronic pain(on canabis oil daily), hx of rash treated with Benadryl and steroids presented to the emergency department with erythema, edema and pain/itching of the urogenital area. Sepsis(leukocytosis, tachycardia), present on admission. Cellulitis of soft tissue of urogenital area - Stable - optical element coater consulted Plan - c/w Augmentin - Pain controlled with IV and PO opioids and Tylenol - IV fluids - f/u Blood cultures Macular rash all over the body - improving - Most likely allergic reaction to either medications or something else patient is in contact with. - Patient received dexamethasone in the emergency department - Monitor HTN - stable - c/w Coreg, monitor , adjust BP meds as needed. Hold home Atenolol . Depression/Anxiety - worsening - resume Citalopram ; Ativan PRN Chronic pain - Patient was on opioids befor, now she takes capsules with Cannabis oil daily. - c/w pain meds for now DVT PROPHYLAXIS: lovenox Code status: full code Disposition: discharge after patient improves. Plan of care discussed with treatment team; Labs, radiology tests reviewed. Plan of care, medication side effects, home medication, diagnostic procedures and available alternatives were discussed and reviewed with patient. All questions answered. Patient verbalized understanding, approved and agreed to plan of care. [employer]: Intermittant Pneumatic CD Earnest Fiore MD Mar 03, 2017 15:53
[2017-03-03 17:26] VITALS: BP 124/86; PULSE 91
[2017-03-03] MEDS: oxyCODONE-Acetamin 5-325 mg Tablet PO PRN ×2 (18:30→22:35)
--- NOTE | 2017-03-03 18:30 | CONS ---
[address] [address] CONSULTATION REPORT PATIENT: SHANE FLOYD : 1970 MR#: [id number] ADMIT: 02/28/2017 JOB ID: [id number] DATE OF SERVICE: 03/03/2017 CHIEF COMPLAINT: Rash and vulvar swelling. HISTORY OF PRESENT ILLNESS: This is 46-year-old -0-0-3 female who presented to the hospital complaining of new onset labial swelling in addition to an ongoing intermittent pruritic rash. The patient stated that she had had this rash that had been ongoing for the last several weeks. She described this as starting on her lower extremities and extending from there. It was described as intensely pruritic and slightly relieved with Benadryl. She could not identify any triggers that may have caused this rash and she had no known allergies to have triggered this. Additionally she had a new onset of labial swelling and erythema. She was admitted on the for a presumed cellulitis. At the time of admission she did receive Benadryl and steroids with some improvement of her symptoms. The working diagnosis at that time was some sort of allergic reaction. While in the emergency department gonorrhea and Chlamydia, as well as Trichomonas labs were sent off. The gonorrhea and chlamydia have since returned negative. The patient was admitted and was started on antibiotics with initial improvement of white count with a max white count of 18 down to 10. However, on hospital day four when her white count had decreased from 18 at that time, it was noted to be increased back up to 12, and her erythema and swelling were noted to be increasing. At this point in time gynecology was then consulted. PAST MEDICAL HISTORY: 1. Depression and anxiety. 2. History of pancreatitis. 3. Hypertension. PAST SURGICAL HISTORY: She has had an endoscopy for gastric polyps and sinus surgery. OBSTETRICAL HISTORY: She is a -0-0-3 female. She has had three full-term vaginal deliveries in the past. She denies any history of sexually transmitted diseases or infections. She is in a monogamous relationship with her . She denies any changes in sex partner or exposure to any sexually transmitted diseases or infections. Last menstrual period has occurred while in the hospital after she did not continue on her control pills after admission. She has light vaginal bleeding at this time. She denies any changes in vulvar hygiene products or detergents. She cannot identify any other potential triggers. SOCIAL HISTORY: She denies any tobacco, alcohol, or drug use. She does use cannabis oil on a regular basis to help with chronic pain. She denies any IV drug use. FAMILY HISTORY: Noncontributory. MEDICATIONS: Citalopram 40 mg daily, Protonix, and atenolol as an outpatient. As an inpatient she is also taking Benadryl for improvement of her pruritic symptoms. Carvedilol, Augmentin, melatonin, Zofran, and lorazepam. ALLERGIES: She describes mild itching while taking narcotics. No other known drug allergies. REVIEW OF SYSTEMS: Significant for resolving nausea and vomiting that was present at time of admission, intense pruritus across the entirety of her abdomen, and diffuse maculopapular skin lesions. She also notes some light vaginal bleeding but no abdominal pain beyond this in general. PHYSICAL EXAM: Her temperature is 36.9, her pulse is 90, respiratory rate is 16. Her blood pressure is 128/89. She is satting 96% on room air. General: She is awake, alert, oriented. No acute distress. Her abdomen is soft, nontender, nondistended. She does have this rash across visible across her body and she has what appears to be lesions on her bilateral lower extremities that appear to be excoriations and a rash that could be consistent with scabies but does not have a pattern of spread consistent with this. On her exam she has erythema of her vulva and mild swelling identified. She describes diffuse mild tenderness to palpation as well as itching of her vulva. Speculum exam reveals normal vaginal mucosa. Her cervix is normal in appearance, with a small amount of blood located within the vaginal vault. There is no abnormal vaginal discharge present. On bimanual exam her uterus is small, nontender, anteverted. There no adnexal masses or tenderness. Her speculum exam was essentially benign. ASSESSMENT: This is a 46-year-old -0-0-3 female admitted with a presumed cellulitis with a diffuse pruritic rash as well as new onset labial erythema and swelling. She had negative gonorrhea and chlamydia swabs at the time of admission. Her symptoms, which had appeared to have been improving, do seem to be slightly worsening. She is currently on Augmentin as per the hospitalist's recommendation. Exam is consistent with vulvar erythema and no other, and a diffuse rash of unknown origin. PLAN: At this point in time she has essentially a normal speculum and bimanual examination. She does have vulvar erythema of unknown origin and a diffuse rash. The majority of her symptoms appear to be dermatologic and she does not have an obvious abscess or other symptoms or issues. Aerobic vaginal swab was collected at the time of her speculum exam, though it is thought to be unlikely to find an infectious etiology. Blood cultures have shown no growth to date. I am unsure of the cause of her symptoms; however, evaluation for HIV, hep B, hep C, as well as syphilis could be evaluated further. Additionally I have low suspicion for any highly concerning things such as necrotizing fasciitis of the vulva or streptococcal toxic shock syndrome. I would recommend evaluation with Dermatology and consideration for empiric treatment for potential scabies, with continued empiric treatment for presumed cellulitis and skin rash of unknown origin. At this point in time Gynecology will sign off unless new symptoms or concerns arise. KATY
[2017-03-03 19:50] VITALS: BP 131/89; PULSE 79; RESP 17; O2SAT 97
[2017-03-04] MEDS: oxyCODONE-Acetamin 5-325 mg Tablet PO PRN (02:52)
--- NOTE | 2017-03-04 03:40 | NUR ---
Pain/activity Pt reporting generalized pain 4-6/10 and has been taking 1 tab of Percocet with adequate relief per pt. Pt has denied nausea this shift. Pt does report itching and has been taking Benadryl 50 mg PO q 6 hrs. Ice applied to meenu area. Swelling/redness appears unchanged from yesterday. Pt complaint of acid reflux, paged and pt will restart Protonix this morning.
[2017-03-04 04:20] VITALS: BP 133/85; PULSE 72; RESP 17; O2SAT 100
[2017-03-04] MEDS ORDERED: Pantoprazole 40 mg ER24 Tablet ONE (04:52)
[2017-03-04] MEDS: Pantoprazole 40 mg ER24 Tablet PO SCH (04:54)
[2017-03-04] MEDS: diphenhydrAMINE 25 mg Capsule PO PRN (04:55)
[2017-03-04] MEDS: Amoxicillin-Clav 875-125 mg Tablet PO SCH ×2 (07:54→20:06)
[2017-03-04 07:57] VITALS: BP 128/86; PULSE 82; RESP 16; O2SAT 99
[2017-03-04 12:33] VITALS: BP 154/93; PULSE 82; RESP 18; O2SAT 98
--- NOTE | 2017-03-04 12:42 | CONS ---
[address] [address] CONSULTATION REPORT PATIENT: SHANE FLOYD : 1970 MR#: [id number] ADMIT: 02/28/2017 JOB ID: [id number] INFECTIOUS DISEASE CONSULTATION: DATE OF SERVICE: 03/04/2017 REASON FOR CONSULTATION: Possible scabies. REQUESTING PHYSICIAN: I thank, Dr. Earnest Fiore, for this timely consult. HISTORY OF PRESENT ILLNESS: The patient is a 46-year-old woman in generally good health, who was admitted through the emergency department on the with possible vaginal or mons pubis cellulitis. Since admission, she has been treated aggressively with IV antibiotics with little impact. Yesterday, she was seen by the JOURNAL ENTRY AUDIT CLERK Team and they were not impressed that she had a significant bacterial infection and wondered if this vaginal swelling and mons swelling and tenderness could be related to the more diffuse pruritus and skin rash she has been suffering over the past several weeks. ID consultation was requested regarding the possibility of scabies. 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 She reports about a month ago, she developed a rash which started behind the knees and on the calves and has gradually spread to encompass most all of her body. These very pruritic red lesions are now noted on both legs up into her mons pubis area around the belt line and under the breast. They are intensely pruritic and do not respond to any of her gvbw-rhe-hpgjuww type treatments. The area around the vagina and mons became affected by these pruritic erythematous nodules last, and for that reason, she sought evaluation in the ED and was admitted for possible vaginal cellulitis. She reports little improvement with antibiotics to date. She has no fevers, no chills. No sweats. No pulmonary or GI symptoms. PAST MEDICAL HISTORY: Hypertension, for which she takes atenolol. SOCIAL HISTORY: She is a nonsmoker, nondrinker but she did smoke in the past. FAMILY HISTORY: Negative for tuberculosis. No one else in the family has scabies or any itching rash that she is aware of. REVIEW OF SYSTEMS: No significant headache. No visual change, sore throat, cough, shortness of breath, nausea, vomiting, or diarrhea. No dysuria. Remainder of the review of systems negative. PHYSICAL EXAMINATION: Reveals an afebrile woman. Temp 36.4, pulse 82, respiratory rate 18, blood pressure 128/86. She is saturating 99% on room air and she is in no acute distress. The patient's mood and affect are normal. Mental status is clear. Eyes without conjunctivitis. No loss of hairs noted. Sinuses unremarkable. Oral cavity: No thrush or hairy leukoplakia. Neck is supple. No adenopathy. Lungs clear. Cardiac tones regular rate and rhythm without murmur. Abdomen soft and nontender without organomegaly. No evidence of synovitis. Neurologically, she is intact with good strength throughout. There are approximately 100 or more erythematous, some excoriated skin lesions scattered across her shins, calves, thighs, belt line region and the area of the breast. These lesions are also scattered on the neck as well as the arms. They do not have classic burrowing appearance of scabies but they are erythematous and start with sort of a dry appearance on the top. Many them have been scratched heavily. LABORATORY DATA: Include white count 18,000 with normal diff; when she came in yesterday 12,600, platelet count stable at 396. The patient did have 4.3% eosinophils when she came in for an absolute eosinophil count of approximately 1000. Creatinine is 0.81. LFTs normal. Urinalysis was negative. RPR negative. Gonorrhea and chlamydia, urine studies negative, hep C and HIV negative. Hepatitis B surface antigen negative. Blood cultures negative and a vaginal culture done yesterday by the rural route mail carrier lean process deployment consultant is negative. IMPRESSION: Overall, I think this likely represents scabies. The patient has about 5% eosinophils on a total white count of 18,000 when she came in, so eosinophil count between 900-1000 was noted in association with these pruritic skin lesions. 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 At this point, it is unclear to me whether she has any significant vaginal cellulitis but the Obstetric/Gynecology Team performed careful exam yesterday and did not think so. RECOMMENDATIONS: 1. I agree with transitioning from Zosyn to Augmentin as I doubt that she has any significant ongoing inadequately treated infection. I would probably continue that for five days or so. 2. MRSA screen of the nares has been ordered and that should be done. Obviously if she does have MRSA in the nares, I would be concerned about MRSA involvement in the genital area and would add some doxycycline to her Augmentin. 3. I would treat her scabies with permethrin cream to be applied below the level of the ears all the way to the toes, left on overnight and then washed off in the morning. ID will go ahead and sign off on this case as I think that she is probably about ready for discharge. I also believe this represents scabies but will be available on an outpatient basis for the patient to see me if she does not completely resolve this process.
--- NOTE | 2017-03-04 13:30 | NUR ---
ACTIVITY Patient rated her pain as 6/10, which is tolerable for her. Tolerating liquids PO and her diet well. Denies nausea. No emesis noted. Denies SOB. Patient has been ambulating independently in the room. Redness in her meenu area noted. Per patient it is less red today. Patient placed on contact precautions for scabies. Care endorsed to Raven Love RN.
--- NOTE | 2017-03-04 13:36 | PCM.PNMED ---
Subjective Date of Service Mar 04, 2017 Subjective Patient is in bed, feels better, complaining of itching skin. PIPELINE CONSTRUCTION INSPECTOR evaluated the patient, sent labs to rule out syphilis, HIV. I asked infectious disease service to believe the patient is well. Patient was diagnosed with possible scabies. She will be treated with permethrin. Exam Vital Signs Vital Sign - Last Date Time Temp Pulse Resp B/P Pulse Ox O2 Delivery O2 Flow Rate FiO2 03/04/17 12:33 36.9 82 18 154/93 98 Room Air Intake and Output 03/03/17 03/03/17 03/04/17 Cumulative From/Thru 15:00 23:00 07:00 02/28/17 00:18 - 03/04/17 06:20 Intake Total 400 ml 1637 ml 78547 ml Output Total 2 ml 1300 ml 67901 ml Balance 398 ml 337 ml 703 ml Intake Oral 400 ml 1637 ml 8490 ml IV Total 3565 ml Output Urine Total 2 ml 1300 ml 61021 ml Emesis 300 ml # Bowel Movements 0 0 Exam GENERAL: Alert, mild distress, cooperative HEAD: atraumatic, normocephalic EYES: EOMI, anicteric, able to fully open and close eyelids SKIN: Skin color normal, turgor normal. Diffuse macular erythematosus rash over the body improving EAR, NOSE, MOUTH, THROAT: Lips, oral mucosa, tongue are moist, pink, no lesions. NECK: no jugulovenous distention; supple ROM normal. MUSCULOSKELETAL: ROM full, muscles are not tender EXTREMITIES: no pitting edema in LE, no new deformities or skin discoloration. NEURO: Alert, oriented X 3, Cranial nerves II-XII intact, Grossly normal motor function. PULSES: 2+ radial, 2+ carotid REVIEW OF SYSTEMS: GENERAL: no malaise, no fevers., SEE HPI HEENT: Negative for frequent or significant headaches All other reviewed and negative other than HPI. IVs and Medications Medications Reviewed: Medications were reviewed in detail Lab and Diagnostics Result Diagram: 03/03/17 0827 02/28/17 0125 Assessment & Plan 46-year-old female with PMH of chronic pain(on canabis oil daily), hx of rash treated with Benadryl and steroids presented to the emergency department with erythema, edema and pain/itching of the urogenital area. Sepsis(leukocytosis, tachycardia), present on admission. Cellulitis of soft tissue of urogenital area. Possible scabies - Stable - electrical instrument technician consulted, advised to check for syphilis, HIV. - ID consulted Plan - c/w Augmentin - Pain controlled with IV and PO opioids and Tylenol - IV fluids - Infectious disease consulted, advised to continue with Augmentin, start Permethrin Macular rash all over the body, ?Scabies - improving - Most likely allergic reaction to either medications or something else patient is in contact with. - Patient received dexamethasone in the emergency department - Start permethrin - Monitor HTN - stable - c/w Coreg, monitor , adjust BP meds as needed. Hold home Atenolol . Depression/Anxiety - Stable - resume Citalopram ; Ativan PRN Chronic pain - Patient was on opioids befor, now she takes capsules with Cannabis oil daily. - c/w pain meds for now DVT PROPHYLAXIS: lovenox Code status: full code Disposition: discharge after patient improves. Plan of care discussed with treatment team; Labs, radiology tests reviewed. Plan of care, medication side effects, home medication, diagnostic procedures and available alternatives were discussed and reviewed with patient. All questions answered. Patient verbalized understanding, approved and agreed to plan of care. VTE Mechanical Devices: Intermittant Pneumatic CD Earnest Fiore MD Mar 04, 2017 13:35
[2017-03-04 19:35] VITALS: BP 134/70; PULSE 79; RESP 16; O2SAT 99
--- NOTE | 2017-03-05 02:37 | NUR ---
Skin Permethrin cream applied from neck down to feet prior to beginning of this shift. Patient remains on contact precautions for scabies. States the itching seems to have calmed down some since the application. Noted to still have a generalized rash to body. States vulvar swelling has decreased a little bit with some redness still noted. Has denied pain or discomfort all of shift so far.
[2017-03-05 04:25] VITALS: BP 146/96; PULSE 90; RESP 17; O2SAT 99
[2017-03-05] MEDS: Pantoprazole 40 mg ER24 Tablet PO SCH (07:30)
[2017-03-05] MEDS: oxyCODONE-Acetamin 5-325 mg Tablet PO PRN (08:30)
[2017-03-05] MEDS: Amoxicillin-Clav 875-125 mg Tablet PO SCH (08:30)
--- NOTE | 2017-03-05 11:01 | NUR ---
agitation/itching pt woke up this am as itchy as ever, she became very agitated, crying/flailing/staggering. "I want to ! I just can't do this anymore!" She was very frustrated. However after getting a shower and washing off the remnants of the cream, the itching abated. She napped for a short time and felt much better after that. She is resting calmly in bed at this time
[2017-03-05 13:24] VITALS: BP 137/90; PULSE 87; RESP 16; O2SAT 98
--- NOTE | 2017-03-05 14:25 | PCM.DIMED ---
Discharge Instructions Date of Service Mar 05, 2017 Dates of Hospitalization Feb 28, 2017 at 03:29 Discharge Diagnosis Discharge Diagnosis Sepsis(leukocytosis, tachycardia), present on admission. Cellulitis of soft tissue of urogenital area. Possible scabies Diet Discharge Diet: Low fat, Low Sodium, Heart Healthy Activity Discharge Activity: No restrictions Call your provider Call your provider for: Fever or Chills, Shortness of breath, Chest pain, Vomitting, Excessive diarrhea, Weakness (unilateral) Patient Instructions Patient Instructions Follow up with PCP in 2-3 days after discharge. Earnest Fiore MD Mar 05, 2017 14:25
[2017-03-05] MEDS ORDERED: AGM875T PO (14:27)
[2017-03-05] MEDS ORDERED: CARV6.252 PO (14:27)
--- NOTE | 2017-03-05 14:34 | PCM.DC.MED ---
Discharge Summary Date of Service Mar 05, 2017 Dates of Hospitalization Date of Hospital Admission Feb 28, 2017 at 03:29 Date of Discharge: Mar 05, 2017 Providers: Admitting Physician: Tk Tinoco MD Primary Care Physician: Brenda Raymond MD Attending Physician: Earnest Fiore MD Diagnosis at Time of Discharge Diagnosis at Time of Discharge Sepsis(leukocytosis, tachycardia), present on admission. Cellulitis of soft tissue of urogenital area. Possible scabies Consultations ID, Gynecology Hospital Course 46-year-old female with PMH of HTN, Depression/Anxiety, chronic pain(on canabis oil daily), hx of rash treated with Benadryl and steroids presented to the emergency department with erythema, edema and pain/itching of the urogenital area. Patient was diagnosed with Sepsis, Cellulites of the soft tissues of urogenital area. She was started on IV Zosyn, IVF. Later , after her cellulitis and Sepsis was improving patient was switched to oral Augmentin. ID and rehab spec were consulted and helped with evaluation and management. Patient was also diagnosed with possible scabies. She was treated with Permethrin cream X 1. Patient was seen and examined on the day of discharge. After patient improved she was discharged home with recommendation to follow up with her PCP for further management of her medical problems. Patient Condition @ Discharge: good Discharge Disposition: home Discharge Activity: resume regular activity Discharge Diet: regular diet, heart healthy, low fat, low salt, high fiber Information Provided to Patient: information about discharge medications Discharge Medications: I discussed with patient medication dosage, usage, goals of therapy, side effects, alternatives. During discharge patient was allert, oriented, able to make own informed decisions. We discussed possible severe side effects, adverse reactions, benefits, risks, alternatives of current and newly prescribed medications and diagnostic procedures. Patient verbalized understanding and agreed to current plan of care and discharge. TIME SPENT IN DISCHARGE ACTIVITY: activity greater then 30 minutes spent in discharge activity. 1. Discussed with patient re: discharge plan of care/treatment, and follow up care/services. 2. Patient agreed with discharge plan and further plan of care, all questions were answered/addressed, no further questions at the time of discharge. Exam Vital Signs (Last) Date Time Temp Pulse Resp B/P Pulse Ox O2 Delivery O2 Flow Rate FiO2 03/05/17 13:24 37.2 87 16 137/90 98 Room Air Test 02/28/17 01:25 02/28/17 13:22 03/03/17 08:27 03/03/17 18:11 Neutrophils (%) (Auto) 71.4% (40-74) Lymphocytes (%) (Auto) 17.1% (14-46) Monocytes (%) (Auto) 6.6% (4-12) Eosinophils (%) (Auto) 4.3% (0-5) Basophils (%) (Auto) 0.3% (0-3) Sodium Level 138mEq/L (134-144) Potassium Level 4.1mEq/L (3.5-5.2) Chloride Level 101mEq/L (97-108) Carbon Dioxide Level 22mmol/L (18-29) Blood Urea Nitrogen 11mg/dL (6-24) Creatinine 0.81mg/dL (0.57-1.00) Estimat Glomerular Filtration Rate 109mL/min (>59) Glucose Level 123mg/dL (60-99) Calcium Level 8.9mg/dL (8.5-10.1) Total Bilirubin 0.2mg/dL (0.0-1.2) Aspartate Amino Transf (AST/SGOT) 15U/L (0-50) Alanine Aminotransferase (ALT/SGPT) 13U/L (0-32) Alkaline Phosphatase 76U/L (25-150) Total Protein 7.2g/dL (6.4-8.4) Albumin 4.0g/dL (3.4-5.0) Hold [place]berg Top Tube Received (Received) Urine Color Straw (YELLOW) Urine Appearance Clear (CLEAR,HAZY) Urine pH 6.0 (5.0-8.0) Urine Specific [place] 1.015 (1.003-1.035) Urine Protein Negativemg/dL (NEG,TRACE) Urine Glucose (UA) 250mg/dL (NEGATIVE) Urine Ketones Negativemg/dL (NEGATIVE) Urine Occult Blood Negative (NEGATIVE) Urine Nitrite Negative (NEGATIVE) Urine Bilirubin Negative (NEGATIVE) Urine Urobilinogen Normalmg/dL (NORMAL) Urine Leukocyte Esterase Negative (NEGATIVE) Urine RBC 0-2/hpf (0-2) Urine WBC 0-5/hpf (0-5) Urine Epithelial Cells Few/hpf (NONE-MOD) Urine Crystals None seen (NONE SEEN) Urine Bacteria None/hpf (NONE-FEW) Urine Hyaline Casts None/lpf (NONE) Urine Granular Casts None seen (NONE SEEN) Urine Waxy Casts None seen (NONE SEEN) Urine Red Blood Cell Casts None seen (NONE SEEN) Urine White Blood Cell Casts None seen (NONE SEEN) Urine Mucus None seen (None Seen) Urine Trichomonas None seen (NONE SEEN) Urine Yeast None (NONE SEEN) Urinalysis Comment None Urine Culture Reflexed Not indicated Chlamydia trachomatis DNA (STEVEN) Negative (Negative) Neisseria gonorrhoeae DNA (STEVEN) Negative (Negative) White Blood Count 12.8th/mm3 (3.8-10.1) Red Blood Count 4.92mil/mm3 (3.90-5.20) Hemoglobin 13.0g/dL (12.0-15.6) Hematocrit 40.1% (35.0-46.0) Mean Corpuscular Volume 81.5fL (81-100) Mean Corpuscular Hemoglobin 26.4pg (27.0-35.0) Mean Corpuscular Hemoglobin Concent 32.4% (32.0-37.0) Red Cell Distribution Width 16.9% (12.3-15.4) Platelet Count 396bil/L (150-400) Rapid Plasma Reagin Non reactive (Non Reactive) Hepatitis B Surface Antigen Negative (Negative) Hepatitis C Antibody <0.1s/co ratio (0.0-0.9) HIV (1&2) Ag and Ab, 4th Generation Non reactive (Non Reactive) Discharge Medications Discharge Medications Amoxicillin/Clav K 875-125 mg (Amoxicillin/Clav K 875-125 mg) 875 Mg Tab 1 TAB PO BID Prescribed by: WILL GARDNER MD Carvedilol (Carvedilol) 6.25 Mg Tablet 6.25 MG PO BIDWM Prescribed by: WILL GARDNER MD Citalopram (Citalopram) 40 Mg Tablet 40 MG PO DAILY (Reported) Pantoprazole DR (Protonix) 40 Mg Tablet 40 MG PO QAM (Reported) As needed Fluticasone Propionate (Flonase Allergy Relief) 50 Mcg/Actuation [place].susp 9.9 ML NS DAILY PRN PRN For Congestion (Reported) Miscellaneous Medications ([ control]) (Reported) Followup Plan Discharge Diet: Low fat, Low Sodium, Heart Healthy Discharge Activity: No restrictions Patient Instructions Follow up with PCP in 2-3 days after discharge. Earnest Fiore MD Mar 05, 2017 14:34
--- NOTE | 2017-03-05 15:00 | NUR ---
discharged home with family. Pt feeling much better, has Rx for Augmentin and Coreg(discontinuing Atenolol) Instructed to set up her f/u appt with PCP. Pt was able to reaffirm her discharge instructions. Rash and redness slightly improved also per pt.
--- NOTE | 2017-03-05 15:04 | NUR ---
Social Work: Discharge/Multidisciplinary Rounds D: EMR reviewed. Pt is on day 5 of hospitalization. Pt discussed in multidisciplinary rounds and is medically stable for discharge home today via POV. Pt encouraged to follow-up with [employer] for rash - MD/RN to coordinate. No SW needs identified in multidisciplinary rounds, no MD orders received. A: Pt who is independent at baseline and has capacity for self-care. P: Pt to discharge home with spouse to transport via POV. Pt encouraged to follow-up with [employer] for rash - MD/RN to coordinate. No SW needs identified, no MD orders received. AGAPITO Palacios
== END 2017-03-05 15:15 | disposition home or self-care (01) ==
LOC: SED 00:16 → INTOOBSV 03:29 → OSC 03:29 → SOU 03-03 14:31 → OSC 03-03 14:33
PROVIDERS: ADMIT Hospitalist; ATTEND Internal Medicine
DX: A41.9 Sepsis, unspecified organism (principal); D72.829 Elevated white blood cell count, unspecified; R00.0 Tachycardia, unspecified; N76.2 Acute vulvitis; L03.818 Cellulitis of other sites; R21 Rash and other nonspecific skin eruption; I10 Essential (primary) hypertension; F41.8 Other specified anxiety disorders; G89.4 Chronic pain syndrome; F12.90 Cannabis use, unspecified, uncomplicated; Z87.891 Personal history of nicotine dependence